=== PATIENT | male | born 1985 | race Caucasian/White ===

== ENCOUNTER 2019-08-01 08:19 | Inpatient (IN) | payer MEDICAID, OTHER ==
[~2019-08-01] VITALS: Ht 182.9 cm; Wt 68.2 kg
[2019-08-01 09:09] LABS: HEMATOCRIT 31.2 % (42.0-52.0); MEAN CORPUSCULAR HEMOGLOBIN 29.9 PG (27.0-31.0); MEAN PLATELET VOLUME 11.2 FL (7.4-10.4)
[2019-08-01 09:11] LABS: BASOPHILS # (AUTO) 0.1 X10'3 (0-0.2); BASOPHILS % (AUTO) 0.7 % (0-1); EOSINOPHILS % (AUTO) 0.3 % (0-6); LYMPHOCYTES # (AUTO) 1.7 X10'3 (1.1-4.8); LYMPHOCYTES % (AUTO) 11.3 % (21-51); MEAN CORPUSCULAR HGB CONC 35.2 g/dL (33.0-36.5); MEAN CORPUSCULAR VOLUME 84.9 FL (78-98); MONOCYTES # (AUTO) 1.1 X10'3 (0-0.9); MONOCYTES % (AUTO) 7.1 % (2-12); NEUTROPHILS # (AUTO) 11.8 X10'3 (1.8-7.7); NEUTROPHILS % (AUTO) 80.6 % (42-75); PLATELET COUNT 209 X10'3 (140-440); RED BLOOD COUNT 3.68 X10'6 (4.70-6.10); RED CELL DISTRIBUTION WIDTH 12.7 % (11.5-14.5); WHITE BLOOD COUNT 14.7 X10'3 (4.5-11.0)
[2019-08-01] MEDS ORDERED: normal saline 1000ML IV soln IV ONE (09:15)
[2019-08-01 09:27] LABS: PARTIAL THROMBOPLASTIN TIME 20 SECONDS (22-32)
[2019-08-01 09:29] LABS: ALANINE AMINOTRANSFERASE 20 U/L (12-78); ALBUMIN 2.9 G/DL (3.4-5.0); ALBUMIN/GLOBULIN RATIO 0.9 (1.1-1.5); ALKALINE PHOSPHATASE 51 IU/L (46-116); ANION GAP 7 (8-16); ASPARTATE AMINO TRANSFERASE 15 U/L (10-37); BILIRUBIN,TOTAL 0.4 MG/DL (0.1-1.0); BLOOD UREA NITROGEN 46 MG/DL (7-18); BUN/CREATININE RATIO 45.1 (5.4-32.0); CALCIUM 8.5 MG/DL (8.5-10.1); CHLORIDE 95 MMOL/L (99-107); CREATININE 1.02 MG/DL (0.60-1.10); GLUCOSE 115 MG/DL (70-104); SODIUM 133 MMOL/L (135-145); TOTAL CARBON DIOXIDE 31.1 MMOL/L (24-32); TOTAL PROTEIN 6.1 G/DL (6.4-8.2); eGFR 84 ML/MIN
[2019-08-01 09:30] LABS: POTASSIUM 4.1 MMOL/L (3.5-5.1)
[2019-08-01 09:40] LABS: TOTAL CELLS COUNTED 100
[2019-08-01 09:41] LABS: HYPERSEGMENTED NEUTROPHILS FEW; PLATELET ESTIMATE NORMAL
[2019-08-01 09:42] LABS: LARGE PLATELETS FEW
[2019-08-01 10:11] LABS: MAGNESIUM 2.2 MG/DL (1.5-2.4)
[2019-08-01 11:05] LABS: CLARITY,URINE CLEAR (Clear); COLOR,URINE YELLOW (Yellow); GLUCOSE, URINE NEGATIVE (Neg); KETONES,URINE 15 mg/dl (Neg); LEUKOCYTE ESTERASE ,URINE NEGATIVE (Neg); NITRITES, URINE NEGATIVE (Neg); OCCULT BLOOD,URINE NEGATIVE (Neg); PROTEIN,URINE NEGATIVE (Neg); UROBILINOGEN,URINE 0.2 E.U/dL (0.2-1.0)
[2019-08-01 11:09] LABS: UA COLLECTION TYPE URINAL
[2019-08-01] MEDS ORDERED: pantoprazole 40mg Tablet.DR PO ONE (11:30)
[2019-08-01] MEDS ORDERED: sucralfate 1gm/10ml UD suspension PO ONE (11:30)
[2019-08-01] MEDS ORDERED: PANT-47 PO ×2 (13:45→14:24)
[2019-08-01] MEDS ORDERED: SUCR1TAB34 PO (13:45)
[2019-08-01 14:36] LABS: OCCULT BLOOD STOOL POSITIVE (Neg)
[2019-08-01] MEDS ORDERED: ondansetron/PF 4mg/2ml inj IV ONE (15:00)
[2019-08-01] MEDS ORDERED: morphine 4 MG/ML inj SYRINge IV ONE (15:00)
[2019-08-01 15:14] LABS: URINE AMPHETAMINE SCREEN NEGATIVE (Neg); URINE BARBITUATE SCREEN NEGATIVE (Neg); URINE BENZODIAZEPINES SCREEN NEGATIVE (Neg); URINE CANNABINOID SCREEN NEGATIVE (Neg); URINE COCAINE SCREEN NEGATIVE (Neg); URINE METHADONE SCREEN NEGATIVE (Neg); URINE OPIATE SCREEN NEGATIVE (Neg); URINE PHENCYCLIDINE SCREEN NEGATIVE (Neg)
[2019-08-01] MEDS ORDERED: acetaminophen 325mg tablet PO PRN ×2 (15:50)
[2019-08-01] MEDS ORDERED: potassium CL 10mEq/100ml bag 100 ML IV PRN ×2 (15:50)
[2019-08-01] MEDS ORDERED: mag hydrox/Alum hydrox/simeth 30ml oral suspension PO PRN (15:50)
[2019-08-01] MEDS ORDERED: morphine 2 MG/ML inj. syringe IV PRN ×2 (15:50)
[2019-08-01] MEDS ORDERED: magnesium 2GM in 50ml NS 50 ML IV PRN (15:50)
[2019-08-01] MEDS ORDERED: potassium Cl 20 mEq SR tablet PO PRN ×2 (15:50)
[2019-08-01] MEDS ORDERED: magnesium hydroxide 30ml (MOM) UD suspension PO PRN (15:50)
[2019-08-01] MEDS ORDERED: metoclopramide 5 mg/ml inj IV PRN (15:50)
[2019-08-01] MEDS ORDERED: diphenhydrAMINE 25mg capsule PO PRN (15:50)
[2019-08-01] MEDS ORDERED: magnesium 4gm in 100ml NS 100 ML IV PRN (15:50)
[2019-08-01] MEDS ORDERED: HYDROcodone/acetaminophen 10/325mg tab PO PRN (15:50)
[2019-08-01] MEDS ORDERED: ondansetron/PF 4mg/2ml inj IV PRN (15:50)
[2019-08-01] MEDS ORDERED: magnesium Cl slow-release 64mg tablet PO PRN (15:50)
[2019-08-01] MEDS ORDERED: HYDROcodone/acetaminophen 5mg/325mg tablet PO PRN (15:50)
[2019-08-01] MEDS: K and/or MAG REPLACEMENT MC SCH (15:50)
[2019-08-01] MEDS: pantoprazole 40MG/NS 100ML BAG 100 ML IV SCH ×3 (16:00→21:08)
[2019-08-01] MEDS: normal saline 1000ml 1,000 ML IV SCH (16:33)
[2019-08-01 17:03] LABS: HEMOGLOBIN A1C 5.4 % (4.5-6.2)
[2019-08-01 17:30] VITALS: BP 126/81
--- NOTE | 2019-08-01 17:30 | NUR ---
Received report from ROWENA Thornton RN. Pt arrived to floor room 3016
--- NOTE | 2019-08-01 18:00 | NUR ---
Patient in room PCU 3011. I have received report from PARAMJIT Huynh and had the opportunity to ask questions and assume patient care.
--- NOTE | 2019-08-01 18:35 | NUR ---
Problems reprioritized. Patient report given, questions answered & plan of care reviewed with PARAMJIT Diego.
[2019-08-01 20:00] VITALS: BP_SYST 103; BP_SYST 110; BP_SYST 90; BP_DIAS 58; BP_DIAS 73
--- NOTE | 2019-08-01 21:08 | NUR ---
1600 Protonix not given, 2100 protonix started.
--- NOTE | 2019-08-01 22:18 | NUR ---
Sent to [facility] MESSAGE: [id number], Regan Fung: Forgot to mention, pt HR increased to 130-150 while standing Not sustained, he is in the 90's now. Thank you! [phone] Brandie
[2019-08-01 22:47] VITALS: BP 110/73
[2019-08-02] VITALS (17 sets, daily range): BP systolic 89–149; BP diastolic 54–95
--- NOTE | 2019-08-02 00:22 | NUR ---
Patient is non compliant with his call light, bed alarm has been turned on. He is encouraged to use his call light hourly but states he forgets. Patient's HR jumps to 160's while standing and blood pressure has dropped during orthostatic vital signs. Dr. Sherman is aware of patient's HR increasing with activity. Will continue to monitor this patient closely. Current vitals are 98.9, HR 102, RR 16, O2 94 RA, BP 100/58 (67) LEFT ARM. PAIN 0
--- NOTE | 2019-08-02 00:25 | NUR ---
Patient's food and water has been taken from bedside at 2350 for EGD tomorrow.
[2019-08-02] MEDS: normal saline 1000ml 1,000 ML IV SCH ×2 (01:48→07:21)
[2019-08-02] MEDS: pantoprazole 40MG/NS 100ML BAG 100 ML IV SCH ×5 (01:50→21:00)
--- NOTE | 2019-08-02 02:31 | NUR ---
Sent to Dr Sherman MESSAGE: room 3011, COLTON PATEL: Pt is wondering if he can have melatonin for sleep. Thank you, Brandie [phone]
[2019-08-02] MEDS: Melatonin 3mg tablet PO SCH ×2 (03:10→20:26)
[2019-08-02 05:54] LABS: BASOPHILS # (AUTO) 0.1 X10'3 (0-0.2); BASOPHILS % (AUTO) 0.7 % (0-1); EOSINOPHILS % (AUTO) 0.5 % (0-6); HEMATOCRIT 22.1 % (42.0-52.0); HEMOGLOBIN 7.8 g/dl (14.0-17.9); LYMPHOCYTES # (AUTO) 1.7 X10'3 (1.1-4.8); LYMPHOCYTES % (AUTO) 21.9 % (21-51); MEAN CORPUSCULAR HEMOGLOBIN 30.6 PG (27.0-31.0); MEAN CORPUSCULAR HGB CONC 35.5 g/dL (33.0-36.5); MEAN PLATELET VOLUME 10.3 FL (7.4-10.4); MONOCYTES # (AUTO) 0.8 X10'3 (0-0.9); NEUTROPHILS # (AUTO) 5.2 X10'3 (1.8-7.7); NEUTROPHILS % (AUTO) 66.9 % (42-75); PLATELET COUNT 160 X10'3 (140-440); RED BLOOD COUNT 2.57 X10'6 (4.70-6.10); RED CELL DISTRIBUTION WIDTH 12.9 % (11.5-14.5); WHITE BLOOD COUNT 7.7 X10'3 (4.5-11.0)
[2019-08-02 06:15] LABS: ALANINE AMINOTRANSFERASE 19 U/L (12-78); ALBUMIN 2.4 G/DL (3.4-5.0); ALBUMIN/GLOBULIN RATIO 0.9 (1.1-1.5); ALKALINE PHOSPHATASE 43 IU/L (46-116); ANION GAP 5 (8-16); ASPARTATE AMINO TRANSFERASE 12 U/L (10-37); BILIRUBIN,TOTAL 0.2 MG/DL (0.1-1.0); BLOOD UREA NITROGEN 16 MG/DL (7-18); BUN/CREATININE RATIO 21.1 (5.4-32.0); CALCIUM 7.6 MG/DL (8.5-10.1); CHLORIDE 108 MMOL/L (99-107); CHOL/HDL RATIO 2.1 (0.00-4.99); CHOLESTEROL 61 MG/DL (0-200); CREATININE 0.76 MG/DL (0.60-1.10); GLUCOSE 97 MG/DL (70-104); HDL CHOLESTEROL 29 MG/DL (35-60); LDL CHOLESTEROL 28 MG/DL (50-100); MAGNESIUM 1.9 MG/DL (1.5-2.4); PHOSPHORUS 2.7 MG/DL (2.3-4.5); POTASSIUM 4.2 MMOL/L (3.5-5.1); SODIUM 139 MMOL/L (135-145); TOTAL CARBON DIOXIDE 25.8 MMOL/L (24-32); TRIGLYCERIDES 41 MG/DL (20-135); eGFR > 90 ML/MIN
--- NOTE | 2019-08-02 06:18 | NUR ---
Problems reprioritized. Patient report given, questions answered & plan of care reviewed with PARAMJIT Hopkins.
--- NOTE | 2019-08-02 06:35 | NUR ---
Patient in room PCU 3011. I have received report from Brandie YUSUF and had the opportunity to ask questions and assume patient care.
--- NOTE | 2019-08-02 06:46 | NUR ---
Patient in room PCU 3011. I have received report from Brandie YUSUF and had the opportunity to ask questions and assume patient care. Patient asleep in bed and in no acute distress.
[2019-08-02] MEDS: K and/or MAG REPLACEMENT MC SCH (08:00)
[2019-08-02] MEDS ORDERED: MIDAZolam 5mg/5ml vial ONE (09:02)
[2019-08-02] MEDS ORDERED: fentaNYL/PF 50MCG/1 ML 2ML syringe ONE ×2 (09:02→09:43)
[2019-08-02] MEDS ORDERED: LIDOcaine Viscous 15ml cup ONE (09:03)
[2019-08-02] MEDS ORDERED: epiNEPHrine 0.1mg/ml 10ml syringe ONE (09:29)
--- NOTE | 2019-08-02 10:41 | NUR ---
Paged Dr Calvo MESSAGE: Re: Regan Fung Rm [id number] FYI Notified by tele that patient had 2:1 heart block for 10 seconds, patient vasovagaled while coughing, patient asymptomatic now. Thank you [phone]
--- NOTE | 2019-08-02 10:55 | NUR ---
Wound care POC. Received consult for possible fungal infection on bilateral feet. spoke with primary RN as there are no pictures in the chart. RN states there are no open wounds to treat. Recommended getting order for appropriate topical from MD. NO need for WOC to follow or treat as there is no needed wound care.
--- NOTE | 2019-08-02 15:43 | NUR ---
PAGER ID: [phone] MESSAGE: RE: Regan Fung [phone]. Patient is requesting nicotine patch. Can you order one for him please? Thank you.
--- NOTE | 2019-08-02 15:45 | NUR ---
Paged Dr. Calvo: MESSAGE: RE: Regan Fung [phone]. Confirmed with patient he smokes 1/2 pack per day. Can we order 14 mg nicotine patch instead? Thank you.
--- NOTE | 2019-08-02 15:47 | NUR ---
New order from Dr. Calvo: 14 mg Nicotine patch.
[2019-08-02] MEDS ORDERED: nicotine 14mg patch - 24hr TD ONE (15:50)
--- NOTE | 2019-08-02 18:21 | NUR ---
Problems reprioritized. Patient report given, questions answered & plan of care reviewed with Brandie YUSUF. Patient stable at transfer of care.
--- NOTE | 2019-08-02 18:21 | NUR ---
Problems reprioritized. Patient report given, questions answered & plan of care reviewed with Brandie YUSUF.
--- NOTE | 2019-08-02 18:22 | NUR ---
[place] documentation: I have reviewed and agree with all interventions, assessments performed and documented by PARAMJIT Stark. [place] Medication Administration: For this medication-pass time frame, all medication were reviewed, dispensed, administered and documented per hospital policy by Mi YUSUF.
--- NOTE | 2019-08-02 18:32 | NUR ---
Patient in room PCU 3011. I have received report from PARAMJIT Hopkins RN and had the opportunity to ask questions and assume patient care.
--- NOTE | 2019-08-02 19:48 | NUR ---
Sent to [facility] MESSAGE: [id number] Hand Donavan: Patient is extremely uncomfortable and feels very full and constipated. MOM given, is there something else we can try for him? Thank you, Brandie [phone]
[2019-08-02] MEDS ORDERED: Melatonin 3mg tablet PO SCH (21:00)
[2019-08-03] VITALS (8 sets, daily range): BP systolic 89–108; BP diastolic 47–70
[2019-08-03] MEDS: pantoprazole 40MG/NS 100ML BAG 100 ML IV SCH ×5 (00:37→23:01)
[2019-08-03 06:00] LABS: BASOPHILS # (AUTO) 0.1 X10'3 (0-0.2); BASOPHILS % (AUTO) 0.9 % (0-1); EOSINOPHILS # (AUTO) 0.1 X10'3 (0-0.9); EOSINOPHILS % (AUTO) 1.3 % (0-6); HEMATOCRIT 23.4 % (42.0-52.0); LYMPHOCYTES % (AUTO) 29.1 % (21-51); MEAN CORPUSCULAR HEMOGLOBIN 29.8 PG (27.0-31.0); MEAN CORPUSCULAR HGB CONC 34.2 g/dL (33.0-36.5); MEAN CORPUSCULAR VOLUME 87.4 FL (78-98); MEAN PLATELET VOLUME 9.8 FL (7.4-10.4); MONOCYTES # (AUTO) 0.6 X10'3 (0-0.9); MONOCYTES % (AUTO) 9.4 % (2-12); NEUTROPHILS % (AUTO) 59.3 % (42-75); PLATELET COUNT 208 X10'3 (140-440); RED BLOOD COUNT 2.68 X10'6 (4.70-6.10); RED CELL DISTRIBUTION WIDTH 13.4 % (11.5-14.5); WHITE BLOOD COUNT 6.8 X10'3 (4.5-11.0)
[2019-08-03 06:22] LABS: ALANINE AMINOTRANSFERASE 23 U/L (12-78); ALBUMIN 2.6 G/DL (3.4-5.0); ALKALINE PHOSPHATASE 43 IU/L (46-116); ANION GAP 5 (8-16); ASPARTATE AMINO TRANSFERASE 15 U/L (10-37); BILIRUBIN,TOTAL 0.2 MG/DL (0.1-1.0); BLOOD UREA NITROGEN 4 MG/DL (7-18); BUN/CREATININE RATIO 5.7 (5.4-32.0); CALCIUM 7.9 MG/DL (8.5-10.1); CHLORIDE 107 MMOL/L (99-107); GLUCOSE 104 MG/DL (70-104); MAGNESIUM 1.8 MG/DL (1.5-2.4); PHOSPHORUS 2.9 MG/DL (2.3-4.5); POTASSIUM 3.9 MMOL/L (3.5-5.1); SODIUM 139 MMOL/L (135-145); TOTAL PROTEIN 5.3 G/DL (6.4-8.2); eGFR > 90 ML/MIN
--- NOTE | 2019-08-03 06:28 | NUR ---
Patient in room PCU 3011. I have received report from Brandie YUSUF and had the opportunity to ask questions and assume patient care.
--- NOTE | 2019-08-03 06:31 | NUR ---
Patient in room PCU 3011. I have received report from Brandie YUSUF and had the opportunity to ask questions and assume patient care. Patient awake in bed with no complaints at this time. All immediate needs met.
--- NOTE | 2019-08-03 06:33 | NUR ---
Problems reprioritized. Patient report given, questions answered & plan of care reviewed with Kellie RN, Mi RN.
[2019-08-03] MEDS: K and/or MAG REPLACEMENT MC SCH (08:00)
[2019-08-03] MEDS: nicotine 14mg patch - 24hr TD SCH (17:01)
--- NOTE | 2019-08-03 18:15 | NUR ---
[place] documentation: I have reviewed and agree with all interventions, assessments performed and documented by PARAMJIT Stark. [place] Medication Administration: For this medication-pass time frame, all medication were reviewed, dispensed, administered and documented per hospital policy by PARAMJIT Stark.
--- NOTE | 2019-08-03 18:15 | NUR ---
Problems reprioritized. Patient report given, questions answered & plan of care reviewed with Tish YUSUF. Patient stable at transfer of care.
--- NOTE | 2019-08-03 18:16 | NUR ---
Problems reprioritized. Patient report given, questions answered & plan of care reviewed with Tish YUSUF.
[2019-08-03] MEDS: Melatonin 3mg tablet PO SCH (21:30)
[2019-08-04] MEDS: pantoprazole 40MG/NS 100ML BAG 100 ML IV SCH ×4 (01:00→16:12)
[2019-08-04 03:00] VITALS: BP 138/61
[2019-08-04 06:03] LABS: BASOPHILS # (AUTO) 0.1 X10'3 (0-0.2); BASOPHILS % (AUTO) 1.1 % (0-1); EOSINOPHILS # (AUTO) 0.1 X10'3 (0-0.9); EOSINOPHILS % (AUTO) 1.2 % (0-6); HEMOGLOBIN 7.2 g/dl (14.0-17.9); LYMPHOCYTES # (AUTO) 1.9 X10'3 (1.1-4.8); LYMPHOCYTES % (AUTO) 32.8 % (21-51); MEAN CORPUSCULAR HEMOGLOBIN 30.5 PG (27.0-31.0); MEAN CORPUSCULAR HGB CONC 34.8 g/dL (33.0-36.5); MEAN CORPUSCULAR VOLUME 87.8 FL (78-98); MEAN PLATELET VOLUME 9.5 FL (7.4-10.4); MONOCYTES # (AUTO) 0.6 X10'3 (0-0.9); MONOCYTES % (AUTO) 9.5 % (2-12); NEUTROPHILS # (AUTO) 3.3 X10'3 (1.8-7.7); NEUTROPHILS % (AUTO) 55.4 % (42-75); PLATELET COUNT 237 X10'3 (140-440); RED BLOOD COUNT 2.37 X10'6 (4.70-6.10); RED CELL DISTRIBUTION WIDTH 13.4 % (11.5-14.5); WHITE BLOOD COUNT 5.9 X10'3 (4.5-11.0)
[2019-08-04 06:10] LABS: HEMATOCRIT 20.8 % (42.0-52.0)
[2019-08-04 06:31] LABS: ALANINE AMINOTRANSFERASE 55 U/L (12-78); ALBUMIN 2.5 G/DL (3.4-5.0); ALBUMIN/GLOBULIN RATIO 0.9 (1.1-1.5); ALKALINE PHOSPHATASE 45 IU/L (46-116); ANION GAP 7 (8-16); ASPARTATE AMINO TRANSFERASE 25 U/L (10-37); BILIRUBIN,TOTAL 0.1 MG/DL (0.1-1.0); BLOOD UREA NITROGEN 9 MG/DL (7-18); BUN/CREATININE RATIO 11.4 (5.4-32.0); CALCIUM 8.1 MG/DL (8.5-10.1); CHLORIDE 108 MMOL/L (99-107); CREATININE 0.79 MG/DL (0.60-1.10); GLUCOSE 135 MG/DL (70-104); MAGNESIUM 1.9 MG/DL (1.5-2.4); PHOSPHORUS 3.1 MG/DL (2.3-4.5); POTASSIUM 3.5 MMOL/L (3.5-5.1); SODIUM 141 MMOL/L (135-145); TOTAL CARBON DIOXIDE 25.9 MMOL/L (24-32); TOTAL PROTEIN 5.2 G/DL (6.4-8.2); eGFR > 90 ML/MIN
[2019-08-04] MEDS: K and/or MAG REPLACEMENT MC SCH (06:43)
--- NOTE | 2019-08-04 06:48 | NUR ---
Problems reprioritized. Patient report given, questions answered & plan of care reviewed with esther YUSUF.
[2019-08-04 07:15] VITALS: BP 106/71
--- NOTE | 2019-08-04 07:22 | NUR ---
Called Dr. Leigh about critical hematocrit of 20.8. No new orders at this time.
--- NOTE | 2019-08-04 07:24 | NUR ---
Patient in room PCU 3011. I have received report from PARAMJIT Winston and had the opportunity to ask questions and assume patient care.
[2019-08-04 07:57] VITALS: BP_SYST 102; BP_SYST 103; BP_SYST 106; BP_DIAS 69; BP_DIAS 73; BP_DIAS 75
[2019-08-04] MEDS: nicotine 14mg patch - 24hr TD SCH (09:33)
[2019-08-04 11:05] VITALS: BP 109/72
[2019-08-04 15:00] VITALS: BP 109/69
[2019-08-04 16:13] LABS: HEMATOCRIT 24.2 % (42.0-52.0); HEMOGLOBIN 8.3 g/dl (14.0-17.9); MEAN CORPUSCULAR HEMOGLOBIN 30.2 PG (27.0-31.0); MEAN CORPUSCULAR HGB CONC 34.1 g/dL (33.0-36.5); MEAN CORPUSCULAR VOLUME 88.7 FL (78-98); MEAN PLATELET VOLUME 10.1 FL (7.4-10.4); PLATELET COUNT 283 X10'3 (140-440); RED BLOOD COUNT 2.73 X10'6 (4.70-6.10); RED CELL DISTRIBUTION WIDTH 13.8 % (11.5-14.5); WHITE BLOOD COUNT 8.5 X10'3 (4.5-11.0)
[2019-08-04] MEDS ORDERED: PANT-47 PO (16:56)
--- NOTE | 2019-08-04 18:03 | NUR ---
Patient stable and appropriate for discharge, IV removed, all belonging sent with patient, patient was wear own clothes and had a ride from a friend, we provided food to take with him, education given
== END 2019-08-04 18:05 | disposition home or self-care (01) | DRG 241 ==
LOC: ER 08:20 → ED HOLD 15:48 → EDBEDREQ 16:29 → PCU 3S 17:11
PROVIDERS: ADMIT Family Medicine; ATTEND Internal Medicine
PROC: 0W3P8ZZ Control Bleeding in Gastrointestinal Tract, Via Natural or Artificial Opening Endoscopic (ICD-10-PCS; principal; 2019-08-02)
PROC: 0DB68ZX Excision of Stomach, Via Natural or Artificial Opening Endoscopic, Diagnostic (ICD-10-PCS; 2019-08-02)
DX: K25.4 Chronic or unspecified gastric ulcer with hemorrhage (principal); F11.10 Opioid abuse, uncomplicated; F15.10 Other stimulant abuse, uncomplicated; F17.200 Nicotine dependence, unspecified, uncomplicated; D62 Acute posthemorrhagic anemia; F12.90 Cannabis use, unspecified, uncomplicated; K29.80 Duodenitis without bleeding; K21.0 Gastro-esophageal reflux disease with esophagitis; W18.39XA Other fall on same level, initial encounter; Y93.89 Activity, other specified; Y92.89 Other specified places as the place of occurrence of the external cause; Y99.8 Other external cause status; Z71.6 Tobacco abuse counseling; Z80.8 Family history of malignant neoplasm of other organs or systems
CPT/HCPCS: 36415; 43227; 43239; 43243; 43255; 70450; 71045; 80053; 80061; 80305; 81003; 82272; 83036; 83605; 83735; 84100; 84145; 84484; 85025; 85027; 85610; 85730; 86885; 86900; 86901; 87040; 87081; 93005; 93306; 96361; 96374; 96375; 97116; 97161; 97530; 99152; 99153; 99285; A4620; C9113; G0378; J0171; J2250; J2270; J2405; J3010; J7030; J7040